=== PATIENT | female | born 1960 | race Hispanic/Latino ===

== ENCOUNTER 2019-10-18 11:35 | Outpatient (CLI) | payer OTHER ==
--- NOTE | 2019-10-18 12:00 | RAD ---
EXAM: XR Thoracic Spine 2 View PROVIDED CLINICAL HISTORY: Mid thoracic back pain for one month. COMPARISON: None FINDINGS: Motion is present on the lateral projection which limits evaluation, but the vertebral body heights a re within normal limits. No obvious fracture is seen, and there is no subluxation involving the thoracic spine. Degenerative changes are seen in the limited visualized cervical spine. There is mild right convex curvature of the lower thoracic spine. Scattered minimal osteophytes are seen in the lumbar spine. Surgical clips overlie the right upper quadrant. IMPRESSION: No acute osseous abnormality involving thoracic spine. Degenerative changes involving the visualized cervical as well as lumbar spine.
== END 2019-10-18 11:36 | disposition home or self-care (01) ==
LOC: BICRAD 11:35
PROVIDERS: ATTEND Family Medicine
DX: M54.6 Pain in thoracic spine (principal); M47.812 Spondylosis without myelopathy or radiculopathy, cervical region; M47.816 Spondylosis without myelopathy or radiculopathy, lumbar region
CPT/HCPCS: 72070